=== PATIENT | male | born 1950 | race Caucasian/White ===

== ENCOUNTER 2021-11-25 06:53 | Day surgery (SDC) | payer MEDICARE, OTHER ==
[2021-11-22 09:43] LABS: BASOPHILS % (AUTO) 0.9 % (0-1); EOSINOPHILS # (AUTO) 0.2 X10'3 (0-0.9); EOSINOPHILS % (AUTO) 3.5 % (0-6); LYMPHOCYTES # (AUTO) 1.2 X10'3 (1.1-4.8); LYMPHOCYTES % (AUTO) 21.7 % (21-51); MEAN CORPUSCULAR HEMOGLOBIN 32.3 PG (27.0-31.0); MEAN CORPUSCULAR VOLUME 94.8 FL (78-98); MONOCYTES # (AUTO) 0.5 X10'3 (0-0.9); MONOCYTES % (AUTO) 9.8 % (2-12); NEUTROPHILS # (AUTO) 3.5 X10'3 (1.8-7.7); NEUTROPHILS % (AUTO) 64.1 % (42-75); PLATELET COUNT 132 X10'3 (140-440); RED BLOOD COUNT 4.96 X10'6 (4.70-6.10); RED CELL DISTRIBUTION WIDTH 14.8 % (11.5-14.5); WHITE BLOOD COUNT 5.5 X10'3 (4.5-11.0)
[2021-11-22 09:55] LABS: ALBUMIN 3.4 G/DL (3.4-5.0); ANION GAP 9 (8-16); BLOOD UREA NITROGEN 25 MG/DL (7-18); BUN/CREATININE RATIO 16.7 (5.4-32.0); CALCIUM 9.2 MG/DL (8.5-10.1); CHLORIDE 103 MMOL/L (99-107); GLUCOSE 143 MG/DL (70-104); POTASSIUM 3.4 MMOL/L (3.5-5.1); SODIUM 141 MMOL/L (135-145); TOTAL CARBON DIOXIDE 28.8 MMOL/L (24-32); eGFR 46 ML/MIN
[2021-11-25] VITALS (13 sets, daily range): BP systolic 125–153; BP diastolic 85–100
[~2021-11-25] VITALS: Ht 182.9 cm; Wt 123.2 kg
[2021-11-25] MEDS ORDERED: normal saline 1000ml 1,000 ML IV SCH (07:20)
[2021-11-25] MEDS ORDERED: fentaNYL/PF 50MCG/1 ML 2ML syringe IV ONE (07:20)
[2021-11-25] MEDS ORDERED: atropine 0.1mg/ml 10ml syringe IV ONE (07:20)
[2021-11-25] MEDS ORDERED: diphenhydrAMINE 25mg capsule PO ONE (07:20)
[2021-11-25] MEDS ORDERED: morphine 10mg/ml inj. IV ONE (07:20)
[2021-11-25] MEDS ORDERED: amiodarone 150mg/dext, iso-os 100 ML IV ONE (07:20)
[2021-11-25] MEDS ORDERED: LORazepam 0.5 MG tablet PO ONE (07:20)
[2021-11-25] MEDS ORDERED: LISI20TA28 PO (07:27)
[2021-11-25] MEDS ORDERED: METO50TA16 PO (07:27)
[2021-11-25] MEDS ORDERED: LISI1TAB53 PO (07:27)
[2021-11-25] MEDS ORDERED: TERA5CAP4 PO (07:27)
[2021-11-25] MEDS ORDERED: ALBU90AE (07:27)
[2021-11-25] MEDS ORDERED: AMIO200T61 (07:27)
[2021-11-25] MEDS ORDERED: METF-1203 PO (07:27)
[2021-11-25] MEDS ORDERED: AMLO5TAB16 PO (07:27)
[2021-11-25] MEDS ORDERED: ROSU10TA28 PO (07:27)
[2021-11-25] MEDS ORDERED: BUDE10.22 INH (07:29)
[2021-11-25] MEDS ORDERED: CHOL500050 PO (07:29)
[2021-11-25] MEDS ORDERED: APIX5TAB3 PO (07:29)
[2021-11-25] MEDS ORDERED: MIDAZolam 1mg/ml 10ml vial IV STA (09:29)
== END 2021-11-25 11:00 | disposition home or self-care (01) ==
LOC: SSTAY O 06:53
PROVIDERS: ATTEND Internal Medicine Cardiovascular Disease
DX: I48.0 Paroxysmal atrial fibrillation (principal); I10 Essential (primary) hypertension; E78.5 Hyperlipidemia, unspecified; J44.9 Chronic obstructive pulmonary disease, unspecified; G47.30 Sleep apnea, unspecified; N40.0 Benign prostatic hyperplasia without lower urinary tract symptoms; Z98.890 Other specified postprocedural states; Z79.82 Long term (current) use of aspirin; Z79.899 Other long term (current) drug therapy; Z86.010 Personal history of colon polyps; Z72.89 Other problems related to lifestyle; Z91.030 Bee allergy status; Z81.8 Family history of other mental and behavioral disorders; Z80.59 Family history of malignant neoplasm of other urinary tract organ; Z80.3 Family history of malignant neoplasm of breast; Z82.49 Family history of ischemic heart disease and other diseases of the circulatory system
CPT/HCPCS: 36415; 80048; 85025; 85610; 92960; 93005; 94799; J0282; J0461; J2250; J2274; J7030; Q0163

== ENCOUNTER 2022-08-21 07:59 | Day surgery (SDC) | payer MEDICARE, BC ==
[2022-08-20 09:49] LABS: BASOPHILS % (AUTO) 0.7 % (0-1); EOSINOPHILS # (AUTO) 0.1 X10'3 (0-0.9); EOSINOPHILS % (AUTO) 1.3 % (0-6); HEMOGLOBIN 15.1 g/dl (14.0-17.9); LYMPHOCYTES # (AUTO) 1.2 X10'3 (1.1-4.8); LYMPHOCYTES % (AUTO) 17.5 % (21-51); MEAN CORPUSCULAR HEMOGLOBIN 32.5 PG (27.0-31.0); MEAN CORPUSCULAR HGB CONC 33.6 g/dL (33.0-36.5); MEAN CORPUSCULAR VOLUME 96.7 FL (78-98); MEAN PLATELET VOLUME 10.1 FL (7.4-10.4); MONOCYTES # (AUTO) 0.5 X10'3 (0-0.9); MONOCYTES % (AUTO) 8.2 % (2-12); NEUTROPHILS # (AUTO) 4.8 X10'3 (1.8-7.7); NEUTROPHILS % (AUTO) 72.3 % (42-75); PLATELET COUNT 134 X10'3 (140-440); RED BLOOD COUNT 4.65 X10'6 (4.70-6.10); RED CELL DISTRIBUTION WIDTH 14.6 % (11.5-14.5); WHITE BLOOD COUNT 6.7 X10'3 (4.5-11.0)
[2022-08-20 10:03] LABS: ALBUMIN 3.6 G/DL (3.4-5.0); ANION GAP 6 (8-16); BLOOD UREA NITROGEN 23 MG/DL (7-18); BUN/CREATININE RATIO 17.6 (5.4-32.0); CALCIUM 9.5 MG/DL (8.5-10.1); CHLORIDE 105 MMOL/L (99-107); CREATININE 1.31 MG/DL (0.60-1.10); GLUCOSE 139 MG/DL (70-104); POTASSIUM 3.4 MMOL/L (3.5-5.1); SODIUM 143 MMOL/L (135-145); eGFR 54 ML/MIN
[2022-08-21] VITALS (19 sets, daily range): BP systolic 132–157; BP diastolic 78–117
[~2022-08-21] VITALS: Ht 182.9 cm; Wt 118.7 kg
[~2022-08-21 07:59] MED LIST: ALBU90AE; AMIO200T61; AMLO5TAB16 PO; APIX5TAB3 PO; BUDE10.22 INH; CHOL500050 PO; LISI1TAB53 PO; LISI20TA28 PO; METF-1203 PO; METO50TA16 PO; ROSU10TA28 PO; TERA5CAP4 PO
[2022-08-21] MEDS ORDERED: LORazepam 0.5 MG tablet PO ONE (08:15)
[2022-08-21] MEDS ORDERED: atropine 0.1mg/ml 10ml syringe IV ONE (08:15)
[2022-08-21] MEDS ORDERED: morphine 10mg/ml inj. IV ONE (08:15)
[2022-08-21] MEDS ORDERED: amiodarone 150mg/dext, iso-os 100 ML IV ONE (08:15)
[2022-08-21] MEDS ORDERED: MIDAZolam 1mg/ml 10ml vial IV ONE (08:15)
[2022-08-21] MEDS ORDERED: diphenhydrAMINE 25mg capsule PO ONE (08:15)
[2022-08-21] MEDS ORDERED: MONT-40 PO (08:24)
[2022-08-21] MEDS ORDERED: RIVA20TA PO (08:24)
[2022-08-21] MEDS ORDERED: CETI10TA PO (08:24)
[2022-08-21] MEDS ORDERED: ASPI81TA52 PO (08:24)
[2022-08-21] MEDS ORDERED: METO-411 PO (08:24)
[2022-08-21] MEDS ORDERED: OMEG-5 PO (08:24)
[2022-08-21] MEDS ORDERED: normal saline 1000ml 1,000 ML IV SCH (08:55)
[2022-08-21] MEDS ORDERED: potassium Cl 20 mEq SR tablet PO STA (09:35)
== END 2022-08-21 11:20 | disposition home or self-care (01) ==
LOC: SSTAY O 07:59
PROVIDERS: ATTEND Internal Medicine Cardiovascular Disease
DX: I48.19 Other persistent atrial fibrillation (principal); E78.5 Hyperlipidemia, unspecified; I10 Essential (primary) hypertension; J44.9 Chronic obstructive pulmonary disease, unspecified; G47.30 Sleep apnea, unspecified; E21.3 Hyperparathyroidism, unspecified; N40.0 Benign prostatic hyperplasia without lower urinary tract symptoms; E11.9 Type 2 diabetes mellitus without complications; Z79.82 Long term (current) use of aspirin; Z79.899 Other long term (current) drug therapy; Z98.890 Other specified postprocedural states; Z86.010 Personal history of colon polyps; Z87.891 Personal history of nicotine dependence; Z91.030 Bee allergy status; Z80.49 Family history of malignant neoplasm of other genital organs; Z80.0 Family history of malignant neoplasm of digestive organs; Z82.49 Family history of ischemic heart disease and other diseases of the circulatory system; Z81.8 Family history of other mental and behavioral disorders
CPT/HCPCS: 36415; 80048; 82948; 85025; 85610; 92960; 93005; J0282; J2250; J2274; J7030; A4620